=== PATIENT | male | born 1995 | race Caucasian/White ===

== ENCOUNTER 2017-06-02 23:07 | Emergency (ER) | payer OTHER ==
[~2017-06-02] VITALS: Ht 180.3 cm; Wt 76.5 kg
[2017-06-02 23:11] VITALS: Ht 180.3 cm; Wt 76.5 kg
--- NOTE | 2017-06-03 00:06 | ERA ---
ER Documentation Chief Complaint Date/Time DATE: 06/03/17 TIME: 00:03 Chief Complaint right ankle pain/swelling, twisted while playing basketball at 2030 HPI 22-year-old male presenting 1-2 hours status post ankle sprain while playing basketball. Is coming to the ED to make sure it is not fractured. Has had swelling and has applied ice and taking ibuprofen with minimal relief. Denies any pain and refuses pain medications at this time. States the pain does occur however when he ambulates. Denies numbness, tingling, loss of range of motion. Patient has no other complaints and describes no other associated manifestations. Nursing notes have been reviewed and are consistent with history given. ROS All systems reviewed and are negative except as per history of present illness. Medications Home Meds Active Scripts Hydrocodone/Acetaminophen (Earth 5-325 Tablet) 1 Each Tablet, 1 TAB PO Q6H Y for PAIN, #7 TAB Prov:NADINE HAMILTON PA-C 06/03/17 Allergies Allergies: Coded Allergies: No Known Drug Allergies (Verified Allergy, Unknown, 06/02/17) Physical Exam Vitals Vital Signs Date Time Temp Pulse Resp B/P Pulse Ox O2 Delivery O2 Flow Rate FiO2 06/02/17 23:11 99.4 77 20 142/77 98 Physical Exam Const: Well-appearing healthy 22-year-old male in a wheelchair in initial presentation in no acute distress Head: Atraumatic Eyes: Normal Conjunctiva ENT: Normal External Ears, Nose and Mouth. Neck: Full range of motion..~ No meningismus. Resp: Clear to auscultation bilaterally Cardio: Regular rate and rhythm, no murmurs. Posterior tibial and dorsalis pedis pulses 2+ bilaterally. Capillary refill less than 2 seconds. Abd: Soft, non tender, non distended. Normal bowel sounds Skin: No petechiae or rashes Back: No midline or flank tenderness Ext: Marked swelling of the right lateral malleolus. No cyanosis, or edema Neur: Awake and alert. Neurovascularly intact bilaterally. Psych: Normal Mood and Affect Procedures/MDM 22-year-old male presenting 1-2 hours status post right ankle sprain as described in history and physical examination. Patient refused pain medications at this time. X-ray was taken, read by the radiologist, given the following impression: No evidence of acute fracture dislocation. Most likely diagnosis is ankle sprain versus strain. I recommended that the patient follow- up with orthopedics in the next week for further evaluation and workup. Little suspicion for bony pathology or neurovascular compromise. I have spoke with the patient regarding their condition and future management. They have verbally responded that they understand their status and treatment plan. The patients vitals are stable, and their current condition is appropriate for discharge. The patient will be given discharge instructions with return precautions. Was equipped with stirrup and crutches before discharge. Discharge medications: Earth 5/25 mg p.o. every 6-8 hours as needed for pain Departure Diagnosis: Primary Impression: Ankle injury Qualified Code: S99.911A - Injury of right ankle, initial encounter Condition: Stable Additional Instructions: Follow up with your PCP within the next 1-3 days for a more thorough evaluation and a possible referral to a specialist. Return the the emergency department immediately if symptoms worsen or change. If you have any questions regarding medications, ask your pharmacist or us before you leave. If any adverse reactions occur while taking your medications, discontinue the treatment and return to the emergency department immediately. Take your medications as directed, and complete the entire course of treatment. NADINE HAMILTON PA-C Jun 03, 2017 00:06
--- NOTE | 2017-06-03 00:48 | RADRPT ---
PROCEDURE: XR Ankle. CLINICAL INDICATION: 22 years of age, male. Right ankle pain. Trauma. TECHNIQUE: Three views of the right ankle. COMPARISON: None available. FINDINGS: No acute fracture or dislocation is identified. Normal alignment on this non-stressed view. There is soft tissue swelling overlying the lateral malleolus and there is an ankle joint effusion.. IMPRESSION: Negative for evidence of acute fracture or dislocation of the right ankle. Soft tissue swelling overlying the lateral malleolus and ankle joint effusion. If symptoms persist, a CT may be performed to evaluate for occult fracture. RPTAT: HCTS Physician Kanwal Date Time Electronically viewed and signed by Physician Kanwal on 06/03/2017 00:47 CS/
[2017-06-03] MEDS ORDERED: HYDR-906 PO (01:08)
== END 2017-06-03 01:23 | disposition home or self-care (01) ==
LOC: FTE 23:07
DX: S93.401A Sprain of unspecified ligament of right ankle, initial encounter (principal); X50.9XXA Other and unspecified overexertion or strenuous movements or postures, initial encounter; Y92.9 Unspecified place or not applicable
CPT/HCPCS: 73610; Z7502